=== PATIENT | male | born 1995 | race Caucasian/White ===

== ENCOUNTER 2020-08-20 06:20 | Emergency (ER) | payer OTHER ==
[~2020-08-20] VITALS: Ht 170.2 cm; Wt 63.0 kg
[2020-08-20] MEDS ORDERED: ONDANSETRON HCL 4MG/2ML INJ IV STA (06:42)
[2020-08-20] MEDS ORDERED: DEXT 5%/0.9% NACL 1,000 ML IV ONE (06:45)
[2020-08-20] MEDS ORDERED: SODIUM CHLORIDE 0.9% 1,000 ML IV ONE (06:45)
[2020-08-20 06:56] LABS: BASOPHILS % 0.8 % (0.0-2.0); EOSINOPHILS % 0.3 % (0.0-5.0); HEMATOCRIT. 45.1 % (42.0-52.0); HEMOGLOBIN. 16.2 g/dL (14.0-18.0); LYMPHOCYTES % 20.3 % (20.0-50.0); MEAN CORPUSCULAR HEMOGLOBIN 31.4 pg (28.0-32.0); MEAN CORPUSCULAR VOLUME 87.3 fL (80.0-94.0); MEAN PLATELET VOLUME 7.9 fl (7.4-10.4); MONOCYTES % 7.2 % (2.0-8.0); NEUTROPHILS % 71.4 % (40.0-76.0); PLATELET 113 x1000/uL (130-400); RED BLOOD CELL COUNT 5.16 mill/uL (4.7-6.1); RED CELL DISTRIBUTION WIDTH 13.2 % (11.6-14.6)
[2020-08-20 07:06] LABS: CHLORIDE 102 mEq/L (98-107)
[2020-08-20 07:13] LABS: ETHANOL BLOOD < 10 mg/dL
[2020-08-20 07:17] LABS: INR 1.1
[2020-08-20 08:51] LABS: CLARITY URINE CLEAR (CLEAR); COLOR URINE YELLOW (YELLOW); KETONES URINE NEGATIVE (NEGATIVE); LEUKOCYTE ESTERASE URINE NEGATIVE (NEGATIVE); NITRITE URINE NEGATIVE (NEGATIVE); OCCULT BLOOD URINE NEGATIVE (NEGATIVE); PROTEIN URINE 1+ (NEGATIVE); UROBILINOGEN URINE 0.2 E.U./dL (0.2-1.0)
[2020-08-20 09:08] LABS: *AMPHETAMINES SCREEN URINE NEGATIVE (NEGATIVE); *BARBITURATES SCREEN URINE NEGATIVE (NEGATIVE)
[2020-08-20 09:09] LABS: *BENZODIAZEPINES SCREEN URINE NEGATIVE (NEGATIVE); *COCAINE SCREEN URINE NEGATIVE (NEGATIVE); CANNABINOID URINE SCREEN NEGATIVE (NEGATIVE); METHADONE URINE SCREEN NEGATIVE (NEGATIVE); OPIATES URINE SCREEN NEGATIVE (NEGATIVE); PHENCYCLIDINE URINE SCREEN NEGATIVE (NEGATIVE)
[2020-08-20 09:16] LABS: HEPATITIS B SURFACE ANTIGEN NEGATIVE
[2020-08-20 09:46] LABS: HEPATITIS A AB IGM NEGATIVE (NEGATIVE)
[2020-08-20 09:47] VITALS: BP 106/47
== END 2020-08-20 10:09 | disposition home or self-care (01) ==
LOC: ER 06:20
DX: E86.0 Dehydration (principal)
CPT/HCPCS: 36415; 71045; 80053; 80305; 80320; 81003; 83605; 83690; 84484; 85025; 85610; 86705; 86709; 86803; 86850; 86900; 86901; 87340; 93005; 96361; 96374; 99285; J2405; J7030; J7042; G0480